=== PATIENT | male | born 2000 | race Caucasian/White ===

== ENCOUNTER 2021-06-08 23:57 | Observation (INO) ==
[2021-06-09] MEDS ORDERED: ONDANSETRON INJ 2 MG/ML 2 ML VIAL IV STA (00:15)
[2021-06-09] MEDS ORDERED: FAMOTIDINE 20MG/5ML IV PUSH IV STA (00:15)
[2021-06-09] MEDS ORDERED: SODIUM CHLORIDE 0.9% 1000ML 1,000 ML IV STA (00:15)
--- NOTE | 2021-06-09 00:19 | Emergency Department Note ---
History of Present Illness General Chief complaint: Abdominal Pain Stated complaint: BACK PAIN AROUND TO RT FRONT UNDER RIBS Time Seen by Provider: 06/09/21 00:09 History of Present Illness Maximum Pain Intensity: 7 This 20-year-old presents to the ER complaining of right upper quadrant abdominal pain after eating [employer] today Location: Right upper quadrant Quality: Painful Severity: Moderate Duration: Today Timing: Started after eating [employer] Context: Patient was concerned and came in Modifying factors: better with hot shower; worse with palpation Patient denies prior history of abdominal pain similar to this. Patient denies chest pain, dyspnea, fevers, vomiting, diarrhea, flulike illness. Home Medications Medication Instructions Recorded Confirmed Type No Known Home Medications 06/09/21 06/09/21 History Allergies Allergy/AdvReac Type Severity Reaction Status Date / Time Cephalosporins Allergy Intermediate Rash Verified 06/09/21 00:41 Past Med/Surg History Medical History No acute medical problems Surgical History No pertinent past surgical history Social History Smoking Status: Never smoker Feels Safe at Home: Yes Review of Systems A total of 10 systems reviewed and were otherwise negative Physical Exam Vital Signs Vital Signs - 24 hr 06/09/21 00:05 06/09/21 00:25 06/09/21 00:36 Temperature 36.5 C Temperature Source Oral Pulse Rate 78 Pulse Rate [Apical] 67 Respiratory Rate 18 18 Respiratory Effort / Characteristics Non-Labored Spontaneous Non-Labored Spontaneous Respiratory Depth Normal Normal Respiratory Pattern Regular Blood Pressure 145/96 H Blood Pressure [Right Arm] 150/74 H Blood Pressure Mean 112 Blood Pressure Mean [Right Arm] 99 Pulse Oximetry 97 98 98 Oxygen Delivery Method Room Air Room Air Room Air Sepsis Recent Fever Within 48 Hours No Sepsis New/Unexplained Change in Mental Status No Sepsis Action Taken by Nursing No Action Required 06/09/21 02:07 Temperature Temperature Source Pulse Rate Pulse Rate [Apical] 68 Respiratory Rate 18 Respiratory Effort / Characteristics Respiratory Depth Respiratory Pattern Blood Pressure Blood Pressure [Right Arm] 147/89 H Blood Pressure Mean Blood Pressure Mean [Right Arm] 108 Pulse Oximetry 98 Oxygen Delivery Method Room Air Sepsis Recent Fever Within 48 Hours Sepsis New/Unexplained Change in Mental Status Sepsis Action Taken by Nursing VITALS: Vitals are noted on the nurse's note and reviewed by myself. Vital signs stable. GENERAL: Pleasant gentleman with an elevated BMI, in no acute distress, non diaphoretic, well-developed well-nourished. SKIN: The skin was without rashes, erythema, edema, or bruising. There is no tenting of the skin. Capillary reflex less than 2 seconds. HEAD: Normocephalic atraumatic. EARS: External auditory canals clear, EYES: Pupils equal round and reactive to light and accommodation. Conjunctivae without injection, sclerae without icterus. Extraocular movements intact. NOSE: Patent, turbinates without inflammation or discharge. MOUTH: Mucous membranes moist. Pharynx without erythema or exudate. Uvula midline. Airway patent. Tongue does not deviate. NECK: Supple without nuchal rigidity. No lymphadenopathy. No thyromegaly. Cervical spine is nontender. No JVD. HEART: Regular rate and rhythm LUNGS: Clear to auscultation bilaterally without wheezes, rales or rhonchi. No retractions or accessory muscle use. ABDOMEN: Positive bowel sounds x 4. Normal tympanic percussion. Soft, tender to palpation in epigastric right upper quadrant, without masses or organomegaly. No guarding or rebound tenderness. No CVA tenderness MUSCULOSKELETAL: No muscle atrophy, erythema, or edema noted. NEURO: Patient was alert and oriented to person place and time. Normal sensation to light and sharp touch. No focal neurological deficits. Course Administered Medications Discontinued Medications Famotidine (Famotidine 20mg/5ml Iv Push) 20 mg IV ONE STA Stop: 06/09/21 00:16 Last Admin: 06/09/21 00:28 Dose: 20 mg Documented by: [id number] Sodium Chloride (Nss 1000ml) 1,000 mls @ 999 mls/hr IV .Q1H1M STA Stop: 06/09/21 01:15 Last Infusion: 06/09/21 02:06 Dose: 0 mls/hr Documented by: [id number] Admin: 06/09/21 00:28 Dose: 999 mls/hr Documented by: [id number] Morphine Sulfate (Morphine Sulfate 4 Mg/Ml 1 Ml Carp\Vial) 4 mg IV NOW STA Stop: 06/09/21 01:04 Last Admin: 06/09/21 01:09 Dose: 4 mg Documented by: [id number] Ondansetron HCl (Ondansetron Inj 2 Mg/Ml 2 Ml Vial) 4 mg IV NOW STA Stop: 06/09/21 00:16 Last Admin: 06/09/21 00:28 Dose: 4 mg Documented by: [id number] Medical Decision Making Medical Records Attestation: I reviewed the patient's medical records. Home Medications Current Medication List: was personally reviewed by me Laboratory Data Attestation: I reviewed the patient's lab results. Result diagrams: 06/09/21 00:20 06/09/21 00:20 Lab Results 06/09/21 06/09/21 06/09/21 Range/Units 00:20 00:20 01:30 WBC 10.29 (4.8-10.8) K/uL RBC 5.12 (4.7-6.1) M/uL Hgb 15.9 (14.0-18.0) g/dL Hct 44.1 (42-52) % MCV 86.1 (80-100) fL MCH 31.1 (25-34) pg MCHC 36.1 H (32-36) g/dL RDW Std Deviation 40.6 (36.4-46.3) fL RDW Coeff of Marcel 12.7 (11.5-14.5) % Plt Count 291 (130-400) K/uL MPV 9.5 (7.4-10.4) fL Immature Gran % (Auto) 0.2 % Neut % (Auto) 60.9 % Lymph % (Auto) 29.1 % [place] % (Auto) 7.7 % Eos % (Auto) 1.9 % Baso % (Auto) 0.2 % Neut # (Auto) 6.27 (1.4-6.5) K/uL Lymph # (Auto) 2.99 (1.2-3.4) K/uL [place] # (Auto) 0.79 H (0.11-0.59) K/uL Eos # (Auto) 0.20 (0-0.5) K/uL Baso # (Auto) 0.02 (0-0.2) K/uL Immature Gran # (Auto) 0.02 (0.00-0.02) K/uL Sodium 140 (136-145) mmol/L Potassium 3.6 (3.5-5.1) mmol/L Chloride 107 (98-107) mmol/L Carbon Dioxide 24 (21-32) mmol/L Anion Gap 9 (3-11) BUN 13 (6-23) mg/dl Creatinine 0.94 (0.6-1.4) mg/dl Est Cr Clr Drug Dosing 195.2 ml/min Est GFR ( Amer) 133.8 ml/min Est GFR (Non-Af Amer) 115.4 ml/min BUN/Creatinine Ratio 13.8 (10-20) Glucose 122 H (70-99(Fasting)) mg/dl Calcium 9.2 (8.5-10.1) mg/dl Total Bilirubin 1.0 (0.2-1.0) mg/dl AST 22 (13-39) U/L ALT 41 (7-52) U/L Alkaline Phosphatase 49 (34-104) U/L Total Protein 7.4 (6.0-8.3) gm/dl Albumin 4.6 (3.4-5.0) gm/dl Globulin 2.8 (2.5-4.0) gm/dl Albumin/Globulin Ratio 1.6 (0.9-2) Lipase 27 (11-82) U/L Urine Color Yellow Urine Appearance Clear (Clear) Urine pH 6.5 (4.5-7.5) Ur Specific [place] 1.025 (1.000-1.030) Urine Protein Negative (Negative) Urine Glucose (UA) Negative (Negative) Urine Ketones Negative (Negative) Urine Blood Negative (Negative) Urine Nitrite Negative (Negative) Urine Bilirubin Negative (Negative) Urine Urobilinogen Negative (Negative) Ur Leukocyte Esterase Negative (Negative) SARS-CoV-2, RNA, NAAT (NEGATIVE) 06/09/21 Range/Units 01:50 WBC (4.8-10.8) K/uL RBC (4.7-6.1) M/uL Hgb (14.0-18.0) g/dL Hct (42-52) % MCV (80-100) fL MCH (25-34) pg MCHC (32-36) g/dL RDW Std Deviation (36.4-46.3) fL RDW Coeff of Marcel (11.5-14.5) % Plt Count (130-400) K/uL MPV (7.4-10.4) fL Immature Gran % (Auto) % Neut % (Auto) % Lymph % (Auto) % [place] % (Auto) % Eos % (Auto) % Baso % (Auto) % Neut # (Auto) (1.4-6.5) K/uL Lymph # (Auto) (1.2-3.4) K/uL [place] # (Auto) (0.11-0.59) K/uL Eos # (Auto) (0-0.5) K/uL Baso # (Auto) (0-0.2) K/uL Immature Gran # (Auto) (0.00-0.02) K/uL Sodium (136-145) mmol/L Potassium (3.5-5.1) mmol/L Chloride (98-107) mmol/L Carbon Dioxide (21-32) mmol/L Anion Gap (3-11) BUN (6-23) mg/dl Creatinine (0.6-1.4) mg/dl Est Cr Clr Drug Dosing ml/min Est GFR ( Amer) ml/min Est GFR (Non-Af Amer) ml/min BUN/Creatinine Ratio (10-20) Glucose (70-99(Fasting)) mg/dl Calcium (8.5-10.1) mg/dl Total Bilirubin (0.2-1.0) mg/dl AST (13-39) U/L ALT (7-52) U/L Alkaline Phosphatase (34-104) U/L Total Protein (6.0-8.3) gm/dl Albumin (3.4-5.0) gm/dl Globulin (2.5-4.0) gm/dl Albumin/Globulin Ratio (0.9-2) Lipase (11-82) U/L Urine Color Urine Appearance (Clear) Urine pH (4.5-7.5) Ur Specific [place] (1.000-1.030) Urine Protein (Negative) Urine Glucose (UA) (Negative) Urine Ketones (Negative) Urine Blood (Negative) Urine Nitrite (Negative) Urine Bilirubin (Negative) Urine Urobilinogen (Negative) Ur Leukocyte Esterase (Negative) SARS-CoV-2, RNA, NAAT NEGATIVE (NEGATIVE) Imaging Data Attestation: I personally reviewed and interpreted this imaging study as follows: MDM Narrative Prior records/ancillary studies reviewed. Triage Nursing notes reviewed. Additional history obtained from mother. The patient's history was concerning for abdominal pain. Differential diagnosis: Etiologies such as appendicitis, diverticulitis, PUD, biliary pathology, UTI, pancreatitis, obstruction, mesenteric ischemia, aortic pathology, infections, inflammatory bowel disease, renal colic, as well as others were entertained. Physical examination findings: As above. ER treatment provided: An order was placed for continuous cardiac monitoring. The monitor shows a rate of 60-100 with a sinus rhythm. Pepcid, Zofran, IV fluids, morphine, Zosyn On reassessment the patient felt better. Diagnostics interpreted by me: The labs revealed no worrisome leukocytosis, normal LFTs. Negative urine Imaging studies: Preliminary Findings Only See Final Report For Complete Findings US RUQ: Hepatomegaly and fatty infiltration of the liver. Gallbladder sludge and distended gallbladder without thickening of the wall which measures 2 mm. No definitive evidence of acute cholecystitis however, Llanos's sign is positive. Clinical correlation is recommended. Suspect adenomyomatosis of the gallbladder wall. The common bile duct is normal. No right hydronephrosis. Radiologist: Shaina Chase MD Consultation: A consultation was placed with the GC, Dr Sousa. The case was discussed and diagnostics were reviewed. The patient was evaluated in the ER for further treatment. Exam and history seem consistent with biliary colic concerning for acute cholecystitis. Surgery evaluated and will take the patient to the OR. Patient and family are agreeable. Patient was written for antibiotics. He was placed NPO. By the evaluation outlined above emergent etiologies such as appendicitis, diverticulitis, PUD, UTI, pancreatitis, obstruction, mesenteric ischemia, aort ic pathology, inflammatory bowel disease, renal colic, as well as others were deemed relatively unlikely. The pt informed about the findings as listed above. All questions were answered and pleased with the treatment. The chart was completed utilizing [email or web address] Speech voice recognition software. Grammatical errors, random word insertions, pronoun errors, and incomplete sentences are an occassional consequence of this system due to software limitations, ambient noise, and hardware issues. Any formal questions or concerns about the content, text, or information contained within the body of this dictation should be directly addressed to the physician data assistant for clarification. Impression & Plan Biliary colic, Abdominal pain in male Discharge Plan Visit Data Chief Complaint: Abdominal Pain Stated Complaint: BACK PAIN AROUND TO RT FRONT UNDER RIBS ED Provider: Nicole Nieto ED Midlevel Provider: Ebonie Campbell Discharge Problem: Biliary colic, Abdominal pain in male Patient Disposition: Being Evaluated by Surgeon Condition: Good Forms Stand Alone Forms: Weavly Prescriptions Prescriptions: No Action No Known Home Medications RF: 0 Referrals Referrals: PCP,NO [Physician] -
[2021-06-09 00:40] LABS: Basophils # (auto) 0.02 K/uL (0-0.2); Basophils % (auto) 0.2 %; Eosinophils % (auto) 1.9 %; Hematocrit (blood only) 44.1 % (42-52); Hemoglobin 15.9 g/dL (14.0-18.0); Immature Granulocytes # (auto) 0.02 K/uL (0.00-0.02); Immature Granulocytes % (auto) 0.2 %; Lymphocytes # (auto) 2.99 K/uL (1.2-3.4); Lymphocytes % (auto) 29.1 %; Mean Corpuscular Hemoglobin 31.1 pg (25-34); Mean Corpuscular Hgb Conc 36.1 g/dL (32-36); Mean Corpuscular Volume 86.1 fL (80-100); Mean Platelet Volume 9.5 fL (7.4-10.4); Monocytes # (auto) 0.79 K/uL (0.11-0.59); Monocytes % (auto) 7.7 %; Neutrophils # (auto) 6.27 K/uL (1.4-6.5); Neutrophils % (auto) 60.9 %; Platelet Count 291 K/uL (130-400); RDW Coefficient of Variation 12.7 % (11.5-14.5); RDW Standard Deviation 40.6 fL (36.4-46.3); Red Blood Count 5.12 M/uL (4.7-6.1); White Blood Count 10.29 K/uL (4.8-10.8)
[2021-06-09] MEDS ORDERED: MoRPHine SULFATE 4 MG/ML 1 ML CARP\\VIAL IV STA (01:03)
[2021-06-09 01:10] LABS: Albumin Globulin Ratio 1.6 (0.9-2); Albumin Level 4.6 gm/dl (3.4-5.0); BUN Creatinine Ratio 13.8 (10-20); Calcium 9.2 mg/dl (8.5-10.1); Creatinine Clr Calc Pharmacy 195.2 ml/min; Est GFR (African American) 133.8 ml/min; Est GFR (Non-African American) 115.4 ml/min; Globulin 2.8 gm/dl (2.5-4.0); Potassium 3.6 mmol/L (3.5-5.1); Total Protein 7.4 gm/dl (6.0-8.3)
[2021-06-09 01:37] LABS: Appearance Urine Clear (Clear); Bilirubin Urine Negative (Negative); Blood Urine Negative (Negative); Color Urine Yellow; Glucose Urine UA Negative (Negative); Ketones Urine Negative (Negative); Leukocyte Esterase Urine Negative (Negative); Nitrite Urine Negative (Negative); Protein Urine Negative (Negative); Specific Gravity Urine 1.025 (1.000-1.030); Urobilinogen Urine Negative (Negative); pH Urine 6.5 (4.5-7.5)
[2021-06-09] MEDS ORDERED: PIPERACILLIN/TAZOBACTAM 4.5 GM/120 ML BAG IV ONE (02:10)
[2021-06-09] MEDS ORDERED: PIPERACILL/TAZOBAC CONSULT ACTIVE PRN ×2 (02:10→03:55)
--- NOTE | 2021-06-09 02:13 | Surgery Consultation ---
Date of Consultation June 09, 2021 Assessment & Plan (1) Abdominal pain in male: see below Present on Admission?: Yes (2) Biliary colic: see below Present on Admission?: Yes (3) Acute cholecystitis: pt is a 20 year-old male who presents to ER with 2 days history RUQ pain, IMP: acute cholecystitis with gallbladder sludge, plan, recommend to admit to hospital, NPO, IV fluid, antibiotic, control pain, to do laparoscopic cholecystectomy, possible open or cholangiogram today at Noon, D/W benefits, risks and alternatives of the surgery, the risks - infection, bleeding, injury other organs, incisional hernia, pt and his Mom understood, they agree with the plan and surgery, pt signed informed consent, I answered all questions, Present on Admission?: Yes History of Present Illness Reason for Consultation: acute cholecystitis Requesting Physician: Ebonie Worley History of Present Illness CC; RUQ pain HPI: pt is a 20 year-old male who presents to ER with 2 days history RUQ after eating [employer], the pain is about 7/10, RUQ pain, not radiate to back, pt denies nausea, no vomiting, no fever, no diarrhea, pt had U/S study- diagnosis- gallbladder sludge, Llanos's sign is positive. pt's Mom had cholecystectomy in the past, otherwise pt is healthy, Allergies Allergy/AdvReac Type Severity Reaction Status Date / Time Cephalosporins Allergy Intermediate Rash Verified 06/09/21 00:41 Home Medications Medication Instructions Recorded Confirmed Type No Known Home Medications 06/09/21 06/09/21 History Patient History Medical History No acute medical problems Surgical History No pertinent past surgical history Social History Smoking Status: Never smoker Feels Safe at Home: Yes Review of Systems Constitutional: as per Subjective / HPI Eyes: as per Subjective / HPI Respiratory: as per Subjective / HPI Cardiovascular: as per Subjective / HPI Gastrointestinal: as per Subjective / HPI Genitourinary: + as per Subjective / HPI Musculoskeletal: as per Subjective / HPI Neurologic: as per Subjective / HPI Psychiatric: as per Subjective / HPI Endocrine: as per Subjective / HPI Hematologic / Lymphatic: as per Subjective / HPI Physical Exam Constitutional: WD/WN, vitals as above Eyes: PERRL, conjunctivae normal, anicteric sclerae Neck: trachea midline, no thyromegaly Respiratory: normal respiratory effort, lungs clear to auscultation Cardiovascular: RRR, no murmur, no edema Gastrointestinal (Abdomen): soft, tenderness at RUQ, no rebound pain, no distend, BS _ Musculoskeletal: no cyanosis or clubbing, extremities motor strength 5/5 Neurologic: patellar DTR's 2+ bilat, sensation intact Psychiatric: A+Ox3, euthymic affect Results & Data ([facility]) Vital Signs (Past 12 Hours) Vital Signs Temp Pulse Pulse Resp BP BP Pulse Ox 06/09/21 02:07 68 18 147/89 H 98 06/09/21 00:36 67 18 150/74 H 98 06/09/21 00:25 98 06/09/21 00:05 36.5 C 78 18 145/96 H 97 Laboratory Results Abnormal lab results 06/09/21 06/09/21 Range/Units 00:20 00:20 MCHC 36.1 H (32-36) g/dL [place] # (Auto) 0.79 H (0.11-0.59) K/uL Glucose 122 H (70-99(Fasting)) mg/dl Diagnostic Findings U/S - gallbladder sludge, Llanos's sign positive
[2021-06-09] MEDS ORDERED: HYDROmorphone INJ 0.5 MG/0.5 ML SYR IV STA (02:21)
[2021-06-09] MEDS: HYDROmorphone INJ 0.5 MG/0.5 ML SYR IV PRN ×2 (04:15→10:30)
[2021-06-09] MEDS: LACTATED RINGER'S 1,000 ML IV SCH ×2 (04:15→16:10)
[2021-06-09] MEDS ORDERED: MoRPHine SULFATE 2 MG/ML CARP IV PRN (06:12)
--- NOTE | 2021-06-09 07:34 | Ultrasound Report ---
US gallbladder CLINICAL HISTORY: ruq pain after eating [employer]obell. COMPARISON: None. TECHNIQUE: Multiple grayscale and color images of the right upper quadrant of the abdomen. FINDINGS: The study is limited by overlying bowel gas. Pancreas: The pancreas is not visualized due to the overlying bowel gas. Liver: The liver demonstrates increased echogenicity characteristic of mild fatty infiltration. There is mild hepatomegaly with the liver measuring 18.6 cm in the axillary margin. There is also incomple te visualization of the left lobe of the liver related to overlying bowel gas. There is no evidence f or a focal mass. There is no intrahepatic biliary duct dilatation. Gallbladder: The gallbladder is distended with cholelithiasis. There is also sludge within the gallb ladder. There is no evidence for wall thickening or pericholecystic edema. However, there was reporte dly a positive sonographic Llanos sign. Additionally, there is a 3 mm polyp present involving the ant erior wall of the gallbladder. Common Bile Duct: (CBD): It is normal in size measuring 4 mm. Inferior Vena Cava (IVC): The imaged IVC is patent. Right kidney: There is no evidence for hydronephrosis, calculus or gross renal mass. The kidney is n ormal in size. IMPRESSION: 1. Limited examination due to overlying bowel gas. 2. Distention of the gallbladder with sludge and cholelithiasis. Positive sonographic Llanos sign. Wh ile there is no significant wall thickening or pericholecystic edema, the presence of early acute cho lecystitis cannot be excluded. 3. There is also evidence for small gallbladder polyp. 4. Mild hepatomegaly with fatty infiltration of the liver ACT 112: Negative or not required by law. Electronically signed by: Cody Qureshi M.D. 06/09/2021 7:33 AM
[2021-06-09] MEDS: PIPERACILLIN/TAZOBACTAM 3.375 GM in DEXTROSE 5% 100 ML IV SCH ×2 (08:42→16:20)
[2021-06-09] MEDS ORDERED: ONDANSETRON INJ 2 MG/ML 2 ML VIAL ONE (12:24)
[2021-06-09] MEDS ORDERED: NEOSTIGMINE METHYLSULFATE 1 MG/ML 10ML VIAL ONE (12:24)
[2021-06-09] MEDS ORDERED: PROPOFOL IV EMULSION 10 MG/ML 20 ML VIAL IV ONE (12:24)
[2021-06-09] MEDS ORDERED: LIDOCAINE 2% 2 ML VIAL/AMP(20MG/ML) INFIL ONE (12:24)
[2021-06-09] MEDS ORDERED: GLYCOPYRROLATE 0.2 MG/ML VIAL ONE (12:24)
[2021-06-09] MEDS ORDERED: DEXAMETHASONE SOD INJ 4 MG/ML VIAL ONE (12:24)
[2021-06-09] MEDS ORDERED: fentaNYL citrate 100 MCG/2 ML VIAL ONE ×3 (12:25→14:08)
[2021-06-09] MEDS ORDERED: MIDAZOLAM HCL 1 MG/ML 2ML VIAL ONE (12:25)
--- NOTE | 2021-06-09 12:48 | Anesthesiology Consultation ---
Date of Service June 09, 2021 Assessment & Plan Chart Review Chart Review: Acceptable Risk for Surgery Consults Requested none History Surgery Operation Date: 06/09/21 10:10 Proposed Procedures p Laparoscopic Cholecystectomy - Edvin Sousa MD Height/Weight Height: 6 ft 6 in Weight: 140.7 kg Allergies Allergy/AdvReac Type Severity Reaction Status Date / Time Cephalosporins Allergy Intermediate Rash Verified 06/09/21 00:41 Medications Home Medications Medication Instructions Recorded Confirmed Last Taken No Known Home Medications 06/09/21 06/09/21 Unknown Active Medications Generic Name Dose Route Start Last Admin Trade Name Freq PRN Reason Stop Dose Admin Hydromorphone HCl 0.5 mg 06/09/21 03:55 06/09/21 10:30 Hydromorphone Inj 0.5 Mg/0.5 Ml Syr IV 06/23/21 03:54 0.5 mg Q6H PRN Administration Pain (6-10) Lactated Ringer's 1,000 mls @ 100 mls/hr 06/09/21 03:55 06/09/21 12:22 Lr IV 07/09/21 03:54 0 mls/hr .Q10H SUZI Infusion Piperacillin Sod/Tazobactam 115 mls @ 28.75 mls/hr 06/09/21 08:00 06/09/21 12:43 Sod 3.375 gm/ Dextrose IV 06/19/21 07:59 Infused Q8H SUZI Infusion Protocol Morphine Sulfate 2 mg 06/09/21 06:12 06/09/21 06:25 Morphine Sulfate 2 Mg/Ml Carp IV 06/23/21 06:11 2 mg Q3H PRN Administration Pain (1-5) NPO Date Last Intake of Fluids: 06/08/21 Time Last Intake of Fluids: 22:30 Last Intake of Fluids Comment: Bottle of water Date Last Intake of Solids: 06/08/21 Time Last Intake of Solids: 18:30 Last Intake of Solids Comment: dinner Past Medical History Medical History No acute medical problems Past Surgical History Surgical History No pertinent past surgical history Social History Smoking Status: Never smoker Hx Alcohol Use: Yes alcohol intake frequency: holidays/special occasions only Hx Substance Use: No substance use type: does not use Physical Exam Vital Signs Last Vital Signs Temp 37.1 C 06/09/21 12:26 Pulse 89 06/09/21 12:26 Resp 16 06/09/21 12:26 BP 141/84 H 06/09/21 12:26 Pulse Ox 98 06/09/21 12:26 Testing Laboratory Results 06/09/21 00:20 06/09/21 00:20 Urine Color Yellow 06/09/21 01:30 Urine Appearance Clear (Clear) 06/09/21 01:30 Urine pH 6.5 (4.5-7.5) 06/09/21 01:30 Ur Specific [place] 1.025 (1.000-1.030) 06/09/21 01:30 Urine Protein Negative (Negative) 06/09/21 01:30 Urine Glucose (UA) Negative (Negative) 06/09/21 01:30 Urine Ketones Negative (Negative) 06/09/21 01:30 Urine Nitrite Negative (Negative) 06/09/21 01:30 Ur Leukocyte Esterase Negative (Negative) 06/09/21 01:30
--- NOTE | 2021-06-09 12:49 | History & Physical Bridge Note ---
Date of Service June 09, 2021 History & Physical Bridge Note I have examined the patient, reviewed the History & Physical and in the interval since the performance of the History & Physical I have noted the following changes of clinical significance: no changes noted
[2021-06-09] MEDS ORDERED: HYDROmorphone INJ 2 MG/ML SYR/VIAL IV PRN (12:50)
[2021-06-09] MEDS ORDERED: fentaNYL citrate 100 MCG/2 ML VIAL IV PRN (12:50)
[2021-06-09] MEDS ORDERED: PROMETHAZINE HCL 12.5 MG in SODIUM CHLORIDE 0.9% 50 ML IV PRN (12:50)
[2021-06-09] MEDS ORDERED: ATROPINE SULFATE 0.1 MG/ML 10ML SYR IV PRN (12:50)
[2021-06-09] MEDS ORDERED: ePHEDrine sulfate 50 MG/ML AMP IV PRN (12:50)
[2021-06-09] MEDS ORDERED: ONDANSETRON INJ 2 MG/ML 2 ML VIAL IV PRN (12:50)
[2021-06-09] MEDS ORDERED: LIDOCAINE 1% LOCAL 20 ML VIAL ONE (13:00)
[2021-06-09] MEDS ORDERED: BUPIVACAINE 0.5 % 5 MG/1 ML MPF 30ML VIAL ONE (13:00)
[2021-06-09] MEDS ORDERED: ROCURONIUM BROMIDE 10 MG/ML 5 ML VIAL IV ONE (13:35)
[2021-06-09] MEDS ORDERED: BACITRACIN OINT 15 GM TUBE EXT ONE (14:52)
--- NOTE | 2021-06-09 15:07 | Post Operative Brief Note ---
Immediate Post Op Note v1 Date of Surgery June 09, 2021 Pre & Post Diagnosis Operation Date: 06/09/21 10:10 Pre-Op Diagnosis: Biliary colic, acute cholecystitis. Post-Op Diagnosis: Biliary colic, acute cholecystitis. I identified the patient and participated in the time-out.: Yes Procedure Operation Date: 06/09/21 10:10 Actual Procedures p Laparoscopic Cholecystectomy - Edvin Sousa MD Surgeon Edvin Sousa MD Welder/Fitter surgical scrub technologist Estimated Blood Loss 30 Findings Consistent with Post-Op Diagnosis Fluids 1000ml Specimens gallbladder Anesthesia Type General Complications none Disposition Accompanied Patient To Recovery: Yes
--- NOTE | 2021-06-09 15:47 | Anesthesiology Progress Note ---
Date of Service June 09, 2021 Anesthesia Post Procedure Vital Signs Vital Signs: Temp Pulse Pulse Pulse Resp BP BP 06/09/21 15:45 80 18 152/81 H 06/09/21 15:35 76 15 147/77 H 06/09/21 15:25 76 18 130/86 06/09/21 15:18 97.2 F L 80 18 143/91 H 06/09/21 12:26 98.8 F 89 16 141/84 H 06/09/21 09:00 97.9 F 83 16 151/75 H 06/09/21 04:36 97.9 F 63 14 144/89 H 06/09/21 03:31 78 18 06/09/21 02:07 68 18 06/09/21 00:36 67 18 06/09/21 00:25 06/09/21 00:05 97.7 F 78 18 145/96 H BP Pulse Ox 06/09/21 15:45 95 06/09/21 15:35 97 06/09/21 15:25 99 06/09/21 15:18 97 06/09/21 12:26 98 06/09/21 09:00 98 06/09/21 04:36 100 06/09/21 03:31 138/68 98 06/09/21 02:07 147/89 H 98 06/09/21 00:36 150/74 H 98 06/09/21 00:25 98 06/09/21 00:05 97 Pain Intensity Right Upper Abdomen: Pain Intensity: 3 Transfer of Care Handoff Completed per policy Notes Mental Status: alert / awake / arousable and participated in evaluation Patient Amnestic to Procedure: Yes Nausea / Vomiting: adequately controlled Pain: adequately controlled Airway Patency, RR, SpO2: stable & adequate BP & HR: stable & adequate Hydration State: stable & adequate Anesthetic Complications: no major complications apparent and Pt Satisfied with anesthetic care
[2021-06-09] MEDS ORDERED: oxyCODONE/ACETAMINOPHEN 5mg/325mg TAB PO PRN (16:11)
--- NOTE | 2021-06-09 21:52 | Operative Report (OR) ---
DATE OF PROCEDURE: 06/09/2021 PREOPERATIVE DIAGNOSES: Acute cholecystitis, gallbladder sludge. POSTOPERATIVE DIAGNOSES: Acute cholecystitis, gallbladder sludge. OPERATION: Laparoscopic cholecystectomy. SURGEON: Edvin Sousa MD. ANESTHESIA: General. ESTIMATED BLOOD LOSS: About 30 mL. FINDINGS: Significant inflammation on the gallbladder wall, gallbladder wall thickening, edema, acut e cholecystitis. COMPLICATIONS: None. INDICATIONS FOR THE PROCEDURE: This is a 20-year-old gentleman who presented to ED with 2 days histo ry of right upper quadrant pain. The patient had an ultrasound diagnosis of acute cholecystitis with gallbladder sludge, and the patient was admitted to the hospital for overnight and we gave her IV an tibiotic, IV fluid to control the pain. Then, I recommended to do a laparoscopic cholecystectomy, po ssible open, possible cholangiogram. I did talk to the patient about the benefit, risk, alternate pr ocedure. I indicated the risks may include, but not limited to, such as bleeding, infection, injury to other organs, incisional hernia, may need ERCP. The patient understands. He signed informed cons ent and I answered all questions. DETAILS OF PROCEDURE: After we identified the patient and verified the procedure, we brought the pat ient to the OR, put the patient in the supine position on the OR table. The patient received SCD on bilateral legs to prevent DVT. Also, patient received 3.375 grams of Zosyn IV for prophylactic antib iotic. The patient received general anesthesia without difficulty. The abdomen was prepped and drap ed in routine sterile fashion. After timeout, I injected the local anesthesia by using 1% lidocaine mixed with 0.5% Marcaine just above the umbilicus. Then I made a small incision just above umbilicus , opened fascia, opened peritoneum. Under direct vision, put a Quin trocar in, connected to CO2 to create pneumoperitoneum, flow rate at 6 liters per minute, pressure not more than 15 mmHg. Once we got a nice pneumoperitoneum, we put another two 5 mm trocars in the right upper quadrant, one 11 trocar in the epigastric area. Once all trocars in, we used the grasper to hold the base of gall bladder, put in the direction to the diaphragm; however, the gallbladder had significant distention. We used a large needle to decompress the gallbladder first. Then, we used another grasper to hold t he pouch of gallbladder, put a lateral to explore the triangle of Calot. The cystic duct was identif ied and mobilized. I put two 10 mm metal clips on the proximal cystic duct, one on the distal cystic duct and used a scissor for transection of cystic duct; rechecked, no active bleeding, no bile leak. The gallbladder showed significant inflammation with gallbladder wall thickening, edema, confirming the diagnosis of acute cholecystitis. At this moment, we mobilized the cystic artery, then put two 1 0 mm metal clips on the proximal cystic artery, one on the distal cystic artery, then used a scissor for transection of cystic artery; rechecked, no active bleeding. Then, we used the Bovie to take tu n gallbladder from liver bed; rechecked, no active bleeding, no bile leak from liver bed. Then, we r emoved gallbladder through the catch bag. Then, we reinserted the Quin trocar in, connected to CO2 to create pneumoperitoneum, again looked a round the abdomen, no active bleeding, no bile leak from the liver bed and then we removed all trocar s under direct vision. No active bleeding from the trocar site. Pneumoperitoneum was released, then I closed the umbilical incision fascial layer by using 0 Vicryl [id number] x2, closed subcutane ous layer by using 2-0 Vicryl interruptedly, closed skin by using 4-0 Vicryl continuous running, clos ed another epigastric incision by using 0 Vicryl, closed the fascial layer interruptedly, closed subc utaneous layer by using 2-0 Vicryl interruptedly, closed skin by using 4-0 Vicryl interruptedly, clos ed another two 5 mm trocar site of skin only by using 4-0 Vicryl. Then, we put the dressing on. The patient tolerated the procedure well. All instrument, needle and sponge counts were correct x2 a t the end of the case. The patient was transferred to recovery room in stable condition. After the procedure, I did talk to the patient and the patient's family member about the OR finding and the pro cedure we did, they understand. The specimen was sent to pathology. Job ID: [id number]
[2021-06-10] MEDS: PIPERACILLIN/TAZOBACTAM 3.375 GM in DEXTROSE 5% 100 ML IV SCH ×2 (01:34→08:04)
[2021-06-10] MEDS: LACTATED RINGER'S 1,000 ML IV SCH (01:40)
[2021-06-10 08:08] LABS: Basophils # (auto) 0.02 K/uL (0-0.2); Basophils % (auto) 0.2 %; Eosinophils # (auto) 0.06 K/uL (0-0.5); Eosinophils % (auto) 0.5 %; Hematocrit (blood only) 40.8 % (42-52); Hemoglobin 14.3 g/dL (14.0-18.0); Immature Granulocytes # (auto) 0.02 K/uL (0.00-0.02); Immature Granulocytes % (auto) 0.2 %; Lymphocytes % (auto) 24.5 %; Mean Corpuscular Hemoglobin 30.8 pg (25-34); Mean Corpuscular Volume 87.9 fL (80-100); Mean Platelet Volume 9.3 fL (7.4-10.4); Monocytes # (auto) 1.14 K/uL (0.11-0.59); Neutrophils # (auto) 7.39 K/uL (1.4-6.5); Neutrophils % (auto) 64.6 %; Platelet Count 282 K/uL (130-400); RDW Standard Deviation 41.6 fL (36.4-46.3); Red Blood Count 4.64 M/uL (4.7-6.1); White Blood Count 11.43 K/uL (4.8-10.8)
[2021-06-10 08:41] LABS: Albumin Globulin Ratio 1.4 (0.9-2); Albumin Level 3.8 gm/dl (3.4-5.0); BUN Creatinine Ratio 7.4 (10-20); Bilirubin,Total 1.3 mg/dl (0.2-1.0); Calcium 8.7 mg/dl (8.5-10.1); Creatinine Clr Calc Pharmacy 195.4 ml/min; Est GFR (African American) 133.8 ml/min; Est GFR (Non-African American) 115.4 ml/min; Globulin 2.7 gm/dl (2.5-4.0); Potassium 3.6 mmol/L (3.5-5.1); Total Protein 6.5 gm/dl (6.0-8.3)
--- NOTE | 2021-06-11 16:43 | Discharge Summary ---
Date of Service June 11, 2021 Admission HPI Per Admitting Provider pt is a 20 year-old male who presents to ER with 2 days history RUQ after eating [employer], the pain is about 7/10, RUQ pain, not radiate to back, pt denies nausea, no vomiting, no fever, no diarrhea, pt had U/S study- diagnosis- gallbladder sludge, Llanos's sign is positive. pt's Mom had cholecystectomy in the past, otherwise pt is healthy Principal Diagnosis Acute cholecystitis Discharge Data Allergies Allergy/AdvReac Type Severity Reaction Status Date / Time Cephalosporins Allergy Intermediate Rash Verified 06/09/21 00:41 Consultations 06/09/21 02:10 ED Decision to Admit Stat Procedures Performed Operation Date: 06/09/21 10:10 Actual Procedures p Laparoscopic Cholecystectomy - Edvin Sousa MD Ordered Studies 06/09/21 00:15 gallbladder Urgent Hospital Course (1) Abdominal pain in male: (2) Biliary colic: (3) Acute cholecystitis: Patient was taken to the operating room for laparoscopic cholecystectomy by Dr. Sousa. Patient was found to have evidence of acute cholecystitis. Patient tolerated procedure well and was transferred to recovery and then to medical/surgical floor for postoperative care. His diet was advanced to clear liquids. Activity as tolerated. IV antibiotics were continued. P.o. Percocet with IV breakthrough pain medication as needed. IV Zofran as needed for nausea. Patient was evaluated on postop day #1. Afebrile, vital signs stable, pain controlled, preoperative pain resolved just now tenderness at incision sites. His labs did show an elevation in his T bili however slight and at 1.3. However his liver enzymes and alk phos were within normal limits. Patient was feeling well and was ready for discharge. He was discharged home on postop day #1 in stable condition. Total Time Total Time Spent Total Time Spent (In Minutes): 30 minutes Total Time Includes: Examination of the Patient, Discharge Planning and Medication Reconciliation Discharge Plan Discharge Items Patient Disposition: Home - Self-Care Reason For Visit: ABDOMINAL PAIN Discharge Diagnosis: Acute cholecystitis Condition on Discharge: Good Activity: Per Instructions section Non-emergency contact: Primary Care Provider and Surgeon Call non-emergency contact if: you have any medication questions, your pain is not controlled, your pain is worsening, your temperature is above 101, your wound has increased redness, your wound has increased drainage and your wound pain has increased Follow-up/Referrals: Edvin Sousa MD [Physician] - 06/25/21 12:45 pm Maximo Sumner PA-C [Primary Care Provider] - Diet: Regular Addtl Attending Provider Instructions: Post-Surgical ~Discharge Instructions Activity Recommendations: - lifting limitation: (20 pounds for 4 weeks), - exercise/sex/sports limit: (nonstrenuous for 2 weeks), - driving or machine use limit: (none for 1 week), - Shower/bathe limit: (august shower beginning Wednesday) Diet: - Resume previous diet SPECIAL CARE INSTRUCTIONS: - May shower on . Sponge bath and wash hair in meantime. On , remove outer dressings and let water run over area and pat dry. Do not submerge incisions underwater for 2 weeks. - Leave steri strips on for one week and then remove. - Call the surgeon's office with any questions or concerns - - (ex. temperature higher than 101 degrees F, excessive bleeding or pain). MEDICATIONS: - Resume previous medications unless instructed otherwise by your surgeon. - May alternate extra strength Tylenol and Ibuprofen as needed for mild to moderate pain -650 m g Tylenol every 6 hours as needed - Ibuprofen 600 mg every 6 hours as needed (Take with food) - Percocet 1 every 6 hours, as needed for moderate to severe pain - Recommend stool softener (Colace) daily while taking narcotic pain medication to avoid constipation or straining. FOLLOW UP VISIT: - If not already scheduled, please call the office to schedule a two week follow-up appointment. Office number Pending Studies at Discharge: Yes (gallbladder pathology, will be reviewed at follow-up visit) Stand-Alone Forms: [facility], Opioid Pain Management, Smoking Cessation Medications and DC Order Prescriptions: New oxycodone-acetaminophen 5-325 mg tablet 1 tab PO Q6H PRN (Reason: pain) Qty: 12 RF: 0 Discharge Orders: Discharge Order (Routine); Ordered 06/10/21 Ordered By: Samantha Whyte Admission Data Admit Date/Time: 06/09/21 02:31 Attending Provider: Edvin Sousa Admit Provider: Edvin Sousa Primary Care Provider: Maximo Sumner Other Providers: Edvin Sousa Other Interventions: Discharge Summary Assessment (RN) Last Done: 06/10/21 11:17
== END 2021-06-10 12:28 | disposition home or self-care (01) ==
LOC: ED 23:57 → 3N 23:57